=== PATIENT | female | born 1995 | race Caucasian/White ===

== ENCOUNTER → 2018-03-08 10:20 | Outpatient (CLI) | payer MEDICAID, SELFPAY ==
[2018-03-08 12:16] LABS: Absolute Lymphocyte Count 1.36 X10^3/ul (0.83-4.51); Absolute Neutrophil Count 6.9 X10^3/uL (2.0-7.7); Basophil# 0.04 X10^3/uL; Basophil% 0.4 % (0-1); Eosinophil# 0.17 X10^3/uL; Eosinophils% 1.8 % (0-5); Hematocrit 40.9 % (37-47); Hemoglobin 13.9 g/dl (12.0-15.0); Lymphocyte # 1.36 X10^3/ul (4.0); Lymphocyte % 14.6 % (19-41); Mean Corpuscular Hgb 32.3 pg (27.0-32.0); Mean Corpuscular Volume 94.9 fL (81-99); Monocyte# 0.85 X10^3/uL; Monocyte% 9.1 % (0-10); Neutrophil # 6.88 X10^3/uL (2.7-7.7); Neutrophil % 73.7 % (47-70); Platelet Count 202 K/mm3 (150-450); RBC Distribution Width CV 12.1 % (11.6-14.6); RBC Distribution Width SD 41.3 fl (35.1-43.9); Red Blood Count 4.31 M/mm3 (4.2-5.4); White Blood Count 9.3 K/mm3 (4.4-11.0)
[2018-03-08 12:29] LABS: POSITIVE COUNT NO; POSITIVE DIFFERENTIAL NO; POSITIVE MORPHOLOGY NO
[2018-03-08 12:38] LABS: ALB/GLOB Ratio 1.3 RATIO (0.9-2.4); AST(SGOT) 13 U/L (15-37); Alanine Aminotransfer ALT/SGPT 24 U/L (13-56); Albumin, Serum 4.1 g/dL (3.2-5.0); Alkaline Phosphatase 79 U/L (45-117); Anion Gap 9 (5-15); BUN 8 mg/dL (7-18); BUN/Creat Ratio 14.8 RATIO (10-20); Chloride 106 mmol/L (98-107); Creatinine, Serum 0.54 mg/dL (0.55-1.02); EST Glomerular Filtration Rate 147 mL/min (>60); Est Glom Filt Rate - Afr Amer 178 mL/min (>60); Ferritin 1741 ng/mL (8-252); Globulin 3.2 g/dL (2.2-4.2); Glucose 89 mg/dL (74-106); Potassium 3.7 mmol/L (3.5-5.1); Protein, Total 7.3 g/dL (6.4-8.2); Sodium Level 141 mmol/L (136-145); Thyroid Stim Hormone (TSH) 0.94 uIU/mL (0.358-3.74)
[2018-03-08 16:54] LABS: CORTISOL SERUM < 0.50 ug/dL (3.09-22.40); HIV - WCH Non-Reactive (Nonreactive)
== END ==
PROVIDERS: Family Provider Family Medicine; PCP Family Medicine; Visit Provider Family Medicine
DX: B19.20 Unspecified viral hepatitis C without hepatic coma (principal); R16.1 Splenomegaly, not elsewhere classified; D69.6 Thrombocytopenia, unspecified; M32.9 Systemic lupus erythematosus, unspecified; M54.2 Cervicalgia; N83.209 Unspecified ovarian cyst, unspecified side; R79.89 Other specified abnormal findings of blood chemistry
CPT/HCPCS: 36415; 80053; 82390; 82533; 82728; 83655; 84439; 84443; 85025; 86480; 86663; 86664; 86665; 86703

== ENCOUNTER → 2018-03-13 11:19 | Outpatient (CLI) | payer MEDICAID, SELFPAY ==
--- NOTE | 2018-03-13 13:20 | US_ITS ---
STUDY: THYROID ULTRASOUND REASON FOR EXAM: Female, 22 years old. Pain. TECHNIQUE: Ultrasound evaluation of the thyroid was performed with real-time and static guerrero-scale imaging. COMPARISON: None. FINDINGS: RIGHT LOBE: The right lobe of the thyroid gland measures 4.9 x 1.6 x 1.4 cm. There is a homogeneous echotexture. There are no demonstrated solid, cystic or complex lesions. LEFT LOBE: The left lobe of the thyroid gland measures 4.9 x 1.7 x 1.3 cm. There is a homogeneous echotexture. There are no demonstrated solid, cystic or complex lesions. ISTHMUS: The isthmus measures 0.5 cm. The regional lymph nodes are normal. US/Thyroid IMPRESSION: Normal ultrasound examination of the thyroid. Electronically Signed: Kirill Obrien MD at 19:51 EDT , Service support ,
--- NOTE | 2018-03-13 13:20 | US_ITS ---
STUDY: ULTRASOUND OF THE FEMALE PELVIS - COMPLETE REASON FOR EXAM: Female, 22 years old. Pelvic pain. LMP: February 26, 2018 TECHNIQUE: Transabdominal and Transvaginal. TECHNICAL QUALITY: Adequate. COMPARISON: None. FINDINGS: The uterus is anteverted and is tilted to the right side of the pelvis. The uterus measures 7.2 x 4.1 x 3.0 cm. Normal uterine cervix. The endometrium measures 13 mm in thickness, and is hyperechoic. There is split appearance of the endometrium with septate uterus. There is no demonstrated endometrial mass. There is no demonstrated myometrial mass. I.U.D. - The patient does not have an I.U.D. The right ovary is visualized. The right ovary measures 3.9 x 2.2 x 2.0 cm. There is 2.0 cm cyst. There is no visualized right adnexal mass or complex lesion. There is normal arterial and normal venous vascularity. The left ovary is visualized. The left ovary measures 2.4 x 2.3 x 1.4 cm. There is no left ovarian cyst or ovarian mass. There is no visualized left adnexal mass or complex lesion. There is normal arterial and normal venous vascularity. There is no fluid in the cul-de-sac. The pre void volume of the bladder was 778 ml. The post void volume of the bladder was 0 ml. US/Pelvic (Non ) IMPRESSION: Right adnexal cyst. Splitting of the the endometrium with septate uterus. Electronically Signed: Kirill Obrien MD at 19:49 EDT , Service support ,
--- NOTE | 2018-03-13 13:20 | US_ITS ---
STUDY: ULTRASOUND OF THE FEMALE PELVIS - COMPLETE REASON FOR EXAM: Female, 22 years old. Pelvic pain. LMP: February 26, 2018 TECHNIQUE: Transabdominal and Transvaginal. TECHNICAL QUALITY: Adequate. COMPARISON: None. FINDINGS: The uterus is anteverted and is tilted to the right side of the pelvis. The uterus measures 7.2 x 4.1 x 3.0 cm. Normal uterine cervix. The endometrium measures 13 mm in thickness, and is hyperechoic. There is split appearance of the endometrium with septate uterus. There is no demonstrated endometrial mass. There is no demonstrated myometrial mass. I.U.D. - The patient does not have an I.U.D. The right ovary is visualized. The right ovary measures 3.9 x 2.2 x 2.0 cm. There is 2.0 cm cyst. There is no visualized right adnexal mass or complex lesion. There is normal arterial and normal venous vascularity. The left ovary is visualized. The left ovary measures 2.4 x 2.3 x 1.4 cm. There is no left ovarian cyst or ovarian mass. There is no visualized left adnexal mass or complex lesion. There is normal arterial and normal venous vascularity. There is no fluid in the cul-de-sac. The pre void volume of the bladder was 778 ml. The post void volume of the bladder was 0 ml. US/Transvaginal Non- IMPRESSION: Right adnexal cyst. Splitting of the the endometrium with septate uterus. Electronically Signed: Kirill Obrien MD at 19:49 EDT , Service support ,
--- NOTE | 2018-03-13 14:08 | US_ITS ---
STUDY: ABDOMINAL ULTRASOUND - RIGHT UPPER QUADRANT REASON FOR VISIT: Female, 22 years old. Pain TECHNIQUE: Ultrasound evaluation of the right upper quadrant was performed with real-time and static guerrero-scale imaging. TECHNICAL QUALITY: Adequate. COMPARISON: None. FINDINGS: Spleen: Enlargement of the spleen measuring 14.4 cm.. Left Kidney: Normal size of the left kidney. The left kidney measures 11.9 x 4.4 x 5.0 cm. Normal renal cortex. The left cortex measures 1.5 cm. There is no demonstrated renal mass or cyst. There is no right hydronephrosis. US/Abdomen Limited IMPRESSION: Splenomegaly. Electronically Signed: Gera Marr DO at 23:46 EDT Tel [phone], Service support ,
== END ==
PROVIDERS: Family Provider Family Medicine; PCP Family Medicine; Referring Provider Family Medicine; Visit Provider Family Medicine
DX: M54.2 Cervicalgia (principal); M54.5 Low back pain; B19.20 Unspecified viral hepatitis C without hepatic coma; D69.6 Thrombocytopenia, unspecified; R79.89 Other specified abnormal findings of blood chemistry; N83.209 Unspecified ovarian cyst, unspecified side; R16.1 Splenomegaly, not elsewhere classified; R10.32 Left lower quadrant pain; M32.9 Systemic lupus erythematosus, unspecified
CPT/HCPCS: 76536; 76705; 76830; 76856

== ENCOUNTER → 2018-03-20 07:51 | Outpatient (CLI) | payer MEDICAID, SELFPAY ==
[2018-03-20 08:12] VITALS: BP 103/70; PULSE 84; RESP 16; TEMP 36.5; O2SAT 100; BMI 27.4
[2018-03-20] MEDS: Cosyntropin 0.25 MG Vial IM (08:21)
== END ==
PROVIDERS: Family Provider Family Medicine; PCP Family Medicine; Referring Provider Family Medicine; Visit Provider Family Medicine
DX: E27.40 Unspecified adrenocortical insufficiency (principal)
CPT/HCPCS: 36415; 82533; 96372; J0834

== ENCOUNTER → 2018-04-06 09:15 | Outpatient (CLI) | payer MEDICAID, SELFPAY ==
[2018-04-06 13:13] LABS: Ferritin 1454 ng/mL (8-252)
== END ==
PROVIDERS: Family Provider Family Medicine; PCP Family Medicine; Referring Provider Family Medicine; Visit Provider Family Medicine
DX: R79.89 Other specified abnormal findings of blood chemistry (principal)
CPT/HCPCS: 36415; 82728

== ENCOUNTER → 2018-04-25 11:30 | Outpatient (CLI) | payer MEDICAID, SELFPAY ==
[2018-04-25 15:55] LABS: Absolute Lymphocyte Count 0.97 X10^3/ul (0.83-4.51); Absolute Neutrophil Count 3.4 X10^3/uL (2.0-7.7); Basophil# 0.03 X10^3/uL; Basophil% 0.6 % (0-1); Eosinophil# 0.13 X10^3/uL; Eosinophils% 2.6 % (0-5); Hematocrit 42.4 % (37-47); Hemoglobin 14.5 g/dl (12.0-15.0); Lymphocyte # 0.97 X10^3/ul (4.0); Lymphocyte % 19.7 % (19-41); Mean Corp Hgb Conc 34.2 g/gl (32-36); Mean Corpuscular Hgb 31.5 pg (27.0-32.0); Mean Platelet Vol. 11.1 fl (6.2-12.0); Monocyte# 0.35 X10^3/uL; Monocyte% 7.1 % (0-10); Neutrophil # 3.44 X10^3/uL (2.7-7.7); Neutrophil % 69.8 % (47-70); Platelet Count 183 K/mm3 (150-450); RBC Distribution Width CV 12.1 % (11.6-14.6); RBC Distribution Width SD 40.5 fl (35.1-43.9); Red Blood Count 4.61 M/mm3 (4.2-5.4); White Blood Count 4.9 K/mm3 (4.4-11.0)
[2018-04-25 16:01] LABS: POSITIVE COUNT NO; POSITIVE DIFFERENTIAL NO; POSITIVE MORPHOLOGY NO
[2018-04-25 16:19] LABS: Ferritin 1681 ng/mL (8-252); Iron 162 ug/dL (50-170)
== END ==
PROVIDERS: Family Provider Family Medicine; PCP Family Medicine; Visit Provider Family Medicine
DX: R16.1 Splenomegaly, not elsewhere classified (principal); R53.82 Chronic fatigue, unspecified; R79.89 Other specified abnormal findings of blood chemistry; R07.9 Chest pain, unspecified; R06.02 Shortness of breath
CPT/HCPCS: 36415; 82728; 83540; 85025

== ENCOUNTER → 2021-03-17 10:53 | Outpatient (CLI) | payer MEDICAID, SELFPAY ==
[2021-03-17 12:10] LABS: Absolute Lymphocyte Count 1.38 X10^3/uL (0.83-4.51); Absolute Neutrophil Count 3.3 X10^3/uL (2.0-7.7); Basophil# 0.03 X10^3/uL; Basophil% 0.6 % (0-1); Eosinophil# 0.12 X10^3/uL; Eosinophils% 2.3 % (0-5); Hematocrit 43.2 % (37-47); Hemoglobin 14.2 g/dL (12.0-15.0); Lymphocyte # 1.38 X10^3/ul (0.83-4.51); Lymphocyte % 26.2 % (19-41); Mean Corp Hgb Conc 32.9 g/dL (32-36); Mean Corpuscular Volume 91.1 fL (81-99); Monocyte# 0.42 X10^3/uL; NRBC Flagged by Analyzer 0 % (0-5); Neutrophil # 3.29 X10^3/uL (2.7-7.7); Neutrophil % 62.5 % (47-70); Platelet Count 210 K/mm3 (150-450); RBC Distribution Width CV 12.4 % (11.6-14.6); RBC Distribution Width SD 41.7 fl (35.1-43.9); Red Blood Count 4.74 M/mm3 (4.2-5.4); White Blood Count 5.3 K/mm3 (4.4-11.0)
[2021-03-17 12:43] LABS: CRP < 2.90 mg/L (0.0-3.0); Ferritin 993 ng/mL (8-252); Iron 45 ug/dL (50-170)
[2021-03-18 15:22] LABS: ANTINUCLEAR ANTIBODIES DIRECT Negative (Negative)
== END ==
PROVIDERS: PCP Family Medicine; Visit Provider Family Medicine
DX: M25.50 Pain in unspecified joint (principal); E83.19 Other disorders of iron metabolism; A23.9 Brucellosis, unspecified; R79.89 Other specified abnormal findings of blood chemistry
CPT/HCPCS: 36415; 82728; 83540; 85025; 86038; 86140; 86225; 86235

== ENCOUNTER → 2023-11-24 | Outpatient (CLI) | payer MEDICAID, SELFPAY ==
--- NOTE | 2023-11-24 17:53 | CT_ITS ---
HISTORY: Sinus pressure. TECHNIQUE: Helically acquired images were obtained of the paranasal sinuses without contrast. A radiation dose optimization technique was used for this scan. 748 images. COMPARISON: None. FINDINGS: FRONTAL SINUSES AND ETHMOID AIR CELLS: Very mild right ethmoid air cell mucosal thickening. MAXILLARY SINUSES: Mild right mucosal thickening. Preservation of the retroantral fat pads. OSTIOMEATAL COMPLEXES: Obstructed on the right and patent on the left. SPHENOID SINUSES: Clear. NASAL CAVITY: No significant nasal septal deviation or obstructing spur. ORBITS: Symmetric contents. MASTOID AIR CELLS: Well aerated bilaterally. BRAIN: No significant attenuation abnormality, mass effect, or acute intracranial hemorrhage. CT/Sinus/Facial Bone IMPRESSION: Right maxillary sinus mucosal thickening with obstruction of the right ostiomeatal complex. No significant air fluid levels. Electronically Signed: Heather Virk MD at 12:53 EDT ,
== END | disposition home or self-care (01) ==
PROVIDERS: PCP Family Medicine; Referring Provider Family Medicine; Visit Provider Family Medicine
DX: J32.1 Chronic frontal sinusitis (principal)
CPT/HCPCS: 70486